=== PATIENT | male | born 1990 | race Caucasian/White ===

== ENCOUNTER 2023-04-18 17:26 | Emergency (ER) | payer OTHER, SELFPAY ==
[2023-04-18 17:35] VITALS: BP 134/79; PULSE 98; RESP 18; TEMP 36.8; O2SAT 100
--- NOTE | 2023-04-18 17:59 | W.ED.GENAD ---
Discharge Plan Disposition Patient Disposition: Home Condition: Stable Discharge Details Clinical Impression: Achilles tendon sprain Primary Care Provider: [facility] Provider: Colette Mckeon Home Meds and New Rx's Prescriptions: No Action No Known Home Meds Discharge Instructions Instructions: Achilles Tendinitis (ED) Additional Instructions: Wear the walking boot as instructed. RICE procedures rest ice compression elevation. You may ice it 3 times a day for about 20 minutes. If you have any continued pain, are unable to flex or extend your ankle you may follow-up with orthopedics within the next 2 weeks. You may try some stretching exercises and advance gently as tolerated. Please take Tylenol or Ibuprofen with food every 4-6 hours as needed for pain and swelling. Referrals: Dimitri Celis PA [[employer]] - 1 week (If needed) Medical Decision Making 32-year-old male presents to the ER with a chief complaint of right Achilles tendon tenderness which radiates up into his right calf after playing basketball. He describes it as feeling tight. Upon arrival he does have flexion extension intact with some pain. No obvious swelling deformity palpated no obvious tremor noted. No deformity noted to his ankle or foot. He did take 2 Advil prior to arrival. He is able to bend and extend his knee without difficulty. No other associated symptoms or complaints. He did not get knocked down to the ground after the incident. Patient was ambulatory with walking boot upon discharge. All of their questions were answered to the best my ability regarding home care and follow-up care if needed. Instructed on RICE procedures. This text was generated using [employer] dictation system, please disregard any oddities of phrase or misspellings. Imaging Data Radiologic Study: Imaging: X-Ray Radiologist's impression: Exam: XR Right Ankle Exam date and time: 04/18/2023 6:37 PM Age: 32 years old Clinical indication: Pain; Ankle; Right TECHNIQUE: Imaging protocol: Radiologic exam of the right ankle. Views: 3 or more views. COMPARISON: No relevant prior studies available. FINDINGS: Bones/joints: No suspicious osseous lytic or blastic lesion. No acute fracture or dislocation. Ankle mortise is preserved. Soft tissues: Normal. IMPRESSION: No acute fracture or dislocation. Thank you for allowing us to participate in the care of your patient. Dictated and Authenticated by: Armando Weiss MD [facility] Mode of arrival: ambulatory. Date/Time Provider Initiated Documentation: 04/18/23 17:54. Limitations to Documentation: no limitations. Information obtained by: patient, RN notes reviewed and old records reviewed. HPI Narrative: 32-year-old male presents to the ER with a chief complaint of right Achilles tendon tenderness which radiates up into his right calf after playing basketball. He describes it as feeling tight. Upon arrival he does have flexion extension intact with some pain. No obvious swelling deformity palpated no obvious tremor noted. No deformity noted to his ankle or foot. He did take 2 Advil prior to arrival. He is able to bend and extend his knee without difficulty. No other associated symptoms or complaints. He did not get knocked down to the ground after the incident. Related Data Home Medications Medication Instructions Recorded Confirmed Unknown [No Known Home Meds] 04/18/23 04/18/23 Allergies Allergy/AdvReac Type Severity Reaction Status Date / Time No Known Allergies Allergy Unverified 04/18/23 17:34 General Stated Complaint: Orthopedic [place]OLTON: 4 Review of Systems All systems reviewed & are unremarkable except as noted in HPI and below Musculoskeletal Musculoskeletal: Reports as per HPI, Reports arthralgias, Reports joint swelling, Reports radiating pain into limb and Reports stiffness PFSH All Active Problems (Updated 04/18/23 @ 19:16 by Colette Mckeon NP) Achilles tendon sprain (Acute) Social History Smoking/Tobacco Use Status: Never Smoking risk assessment performed?: Yes Alcohol Intake: current Alcohol Intake frequency: 0-2 drinks per day Alcohol type: wine Substance use type: does not use Housing: apartment Do you feel safe at home: Yes Do you feel safe in your relationship?: Yes Exam Extrem General: normal to inspection and capillary refill normal Right lower extremity: lower leg Details: tenderness Location: of the posterior calf and no edema; no localized swelling and no palpable cords, ankle Details: tenderness Location: of the achilles tendon and achilles tendon exam abnormal (Normal Rodrigez's test) Details: tenderness to palpation of achilles tendon; no step-off noted; no swelling, edema and no unusual warmth and foot Course Vital Signs Vital signs: Vital Signs Temperature 36.8 C 04/18/23 17:35 Pulse 98 H 04/18/23 17:35 Respiratory Rate 18 04/18/23 17:35 Blood Pressure 134/79 04/18/23 17:35 Pulse Oximetry 100 04/18/23 17:35 Temperature 36.8 C 04/18/23 17:35 Pulse 98 H 04/18/23 17:35 Respiratory Rate 18 04/18/23 17:35 Respiratory Effort Normal, Non-Labored 04/18/23 17:37 Blood Pressure 134/79 04/18/23 17:35 Pulse Oximetry 100 04/18/23 17:35 Pain Level 8 04/18/23 17:35 PAWSS Have you Been Recently Intoxicated or Drunk Within the Last 30 days?: No Have you Ever Experienced Previous Episodes of Alcohol Withdrawal?: No Have you ever Experienced Withdrawal Seizures?: No Have you ever Experienced Delirium Tremens(DT)s?: No Have you ever undergone Alcohol Rehabilitation Treatment (i.e, inpt ot outpatient treatment programs)?: No Have you ever Experienced Blackouts?: Yes Have you ever Combined Alcohol with other Downers within the last 90 days?: No Have you ever Combined Alcohol with any other Substance of Abuse during the last 90 days?: No Positive Blood Alcohol level on Presentation? [PCS.BAL]: No Evidence of Increased Autonomic Activity (i.e. HR>120, tremor, sweating, agitation, nausea)?: No Result: 1
--- NOTE | 2023-04-18 18:45 | DI.RAD_ITS ---
Exam(s) XR ANKLE RT COMPLETE EXAM: XR ANKLE RT COMPLETE CLINICAL HISTORY: Ankle pain,. TECHNIQUE: 2D digital imaging was performed. Three views. COMPARISON: No exams were available for comparison FINDINGS: BONES: No acute fracture is present. No bony destructive lesion is seen. JOINTS: The ankle mortise is normally aligned. SOFT TISSUE: Normal. IMPRESSION: Unremarkable radiographs of the right ankle. DATA REPOSITORY: RADIATION DOSE DELIVERED:
[2023-04-18 19:32] VITALS: BP 118/74; PULSE 74; RESP 16; TEMP 36.8; O2SAT 99
--- NOTE | 2023-04-18 19:32 | DI.VRAD_ITS ---
PROCEDURE INFORMATION: Exam: XR Right Ankle Exam date and time: 04/18/2023 6:37 PM Age: 32 years old Clinical indication: Pain; Ankle; Right TECHNIQUE: Imaging protocol: Radiologic exam of the right ankle. Views: 3 or more views. COMPARISON: No relevant prior studies available. FINDINGS: Bones/joints: No suspicious osseous lytic or blastic lesion. No acute fracture or dislocation. Ankle mortise is preserved. Soft tissues: Normal. IMPRESSION: No acute fracture or dislocation. Dictated and Authenticated by: Armando Weiss MD. Ordering:BOUBACAR Alvarenga MD
== END 2023-04-18 19:34 | disposition home or self-care (01) ==
PROVIDERS: Emergency Provider Registered Nurse Emergency
DX: S86.012A Strain of left Achilles tendon, initial encounter (principal); W50.0XXA Accidental hit or strike by another person, initial encounter; Y93.67 Activity, basketball; Y92.89 Other specified places as the place of occurrence of the external cause
CPT/HCPCS: 99283; 73610